=== PATIENT | female | born 1990 | race Caucasian/White ===

== ENCOUNTER → 2017-07-10 | Outpatient (CLI) | payer BC ==
[~2017-07-10] MED LIST: ACETAMINOPHEN-1 EAC1 PO; CYCLOBENZAPRINE; CYMBALTA; EFFEXOR 5050 MG/1 T1 PO; FIORICET 50-321 EACH PO; FLEXERIL PO; IBUPROFEN 800800 M1 PO; IBUPROFEN 800800 MG PO; INDERAL; MAXALT; MOBIC7.5 MG PO; NORTRIPTYLINE H25 M3 GT; ONDANSETRON HCL4 M2 PO; PERCOCET PO; SENEXON-S TABL1 EACH PO; TOPAMAX50 MG PO; VICODIN 5-5001 EACH PO; ZANAFLEX2 M1 PO; ZANAFLEX4 MG PO; ZOFRAN ODT4 MG PO
== END ==
LOC: M.MRI 12:47
DX: S83.241A Other tear of medial meniscus, current injury, right knee, initial encounter (principal); M25.461 Effusion, right knee; X58.XXXA Exposure to other specified factors, initial encounter; Y93.89 Activity, other specified; Y92.89 Other specified places as the place of occurrence of the external cause; Y99.8 Other external cause status

== ENCOUNTER → 2017-10-22 | Outpatient (CLI) | payer BC | LOC: M.MRI 07:03 | DX: M25.461 Effusion, right knee (principal) ==